=== PATIENT | female | born 1985 ===

== ENCOUNTER 2018-07-26 18:54 | Emergency (ER) | payer OTHER ==
[2018-07-26 18:56] VITALS: BMI 25.7
[2018-07-26 19:25] VITALS: RESP 18; TEMP 98.3
--- NOTE | 2018-07-26 20:11 | ED PDOC ---
Arrival/HPI - General Chief Complaint: Palpitations Time Seen by Provider: 07/26/18 19:09 Historian: Patient - History of Present Illness Narrative History of Present Illness (Text): 07/26/18 19:30 Namrata Muñoz is a 32 year old female, whose past medical history includes asthma, who presents to the Emergency department complaining of palpitations. Patient states she has been experiencing palpitations intermittently throughout the day. Patient notes she has experienced similar symptoms in the past. Patient denies any fever, chills, nausea, vomiting, diarrhea, urinary symptoms, back pain, neck pain, headache, dizziness, or any other complaints. Symptom Onset: Gradual Symptom Course: Unchanged Activities at Onset: Light Context: Home Past Medical History - Provider Review Nursing Documentation Reviewed: Yes - Tetanus Immunization Tetanus Immunization: Unknown - Pulmonary Hx Asthma: Yes - Psychiatric Hx Substance Use: No - Past Surgical History Past Surgical History: No Previous - Anesthesia Hx Anesthesia: No Hx Anesthesia Reactions: No Hx Malignant Hyperthermia: No - Suicidal Assessment Feels Threatened In Home Enviroment: No Family/Social History - Physician Review Nursing Documentation Reviewed: Yes Family/Social History: Unknown Family HX Smoking Status: Never Smoked Hx Alcohol Use: Yes Hx Substance Use: No Hx Substance Use Treatment: No Allergies/Home Meds Allergies/Adverse Reactions: Allergies No Known Allergies Allergy (Verified 09/02/14 08:59) Home Medications: Home Meds Medication Instructions Recorded Confirmed Albuterol Sulfate [Ventolin Hfa] 2 puff IH PRN PRN 09/02/14 09/02/14 Review of Systems - Physician Review All systems were reviewed & negative as marked: Yes - Review of Systems Constitutional: Normal. absent: Fevers Eyes: Normal ENT: Normal Respiratory: Normal. absent: SOB, Cough Cardiovascular: Palpitations Gastrointestinal: Normal. absent: Abdominal Pain, Diarrhea, Nausea, Vomiting Genitourinary Female: Normal. absent: Dysuria, Frequency, Hematuria Musculoskeletal: Normal. absent: Back Pain, Neck Pain Skin: Normal. absent: Rash Neurological: Normal. absent: Headache, Dizziness Endocrine: Normal Hemo/Lymphatic: Normal Psychiatric: Normal Physical Exam Vital Signs Reviewed: Yes Vital Signs Temp Pulse Resp BP Pulse Ox 07/26/18 18:56 98.3 F 80 18 117/77 100 Temperature: Afebrile Blood Pressure: Normal Pulse: Regular Respiratory Rate: Normal Appearance: Positive for: Well-Appearing, Non-Toxic, Comfortable Pain Distress: None Mental Status: Positive for: Alert and Oriented X 3 - Systems Exam Head: Present: Atraumatic, Normocephalic Pupils: Present: PERRL Extroacular Muscles: Present: EOMI Conjunctiva: Present: Normal Mouth: Present: Moist Mucous Membranes Neck: Present: Normal Range of Motion Respiratory/Chest: Present: Clear to Auscultation, Good Air Exchange. No: Respiratory Distress, Accessory Muscle Use Cardiovascular: Present: Regular Rate and Rhythm, Normal S1, S2. No: Murmurs Abdomen: No: Tenderness, Distention, Peritoneal Signs Back: Present: Normal Inspection Upper Extremity: Present: Normal Inspection. No: Cyanosis, Edema Lower Extremity: Present: Normal Inspection. No: Edema Neurological: Present: GCS=15, CN II-XII Intact, Speech Normal Skin: Present: Warm, Dry, Normal Color. No: Rashes Psychiatric: Present: Alert, Oriented x 3, Normal Insight, Normal Concentration Medical Decision Making ED Course and Treatment: 07/26/18 19:30 Impression: 32 year old female complaining of intermittent palpitations today. Plan: -- EKG -- Labs, cardiac enzymes, TSH, T3, D-dimer -- Reassess and disposition Progress Notes: Reviewed EKG, NSR at 84 bpm. Non-specific T wave changes. 07/26/18 23:45 On re-evaluation, patient feels better and is in no acute distress. I have discussed the results and plan with the patient, who expresses understanding. Patient in agreement with plan to be discharged home. Patient is stable for discharge. Patient was instructed to follow up with physician or return if symptoms worsen or new concerning symptoms arise. - EKG Interpretation Interpreted by ED Physician: Yes Type: 12 lead EKG - Scribe Statement The provider has reviewed the documentation as recorded by the Skylar Truong Provider Scribe Attestation: All medical record entries made by the Scribe were at my direction and personally dictated by me. I have reviewed the chart and agree that the record accurately reflects my personal performance of the history, physical exam, medical decision making, and the department course for this patient. I have also personally directed, reviewed, and agree with the discharge instructions and disposition. Disposition/Present on Arrival - Present on Arrival Any Indicators Present on Arrival: No History of DVT/PE: No History of Uncontrolled Diabetes: No Urinary Catheter: No History of Decub. Ulcer: No History Surgical Site Infection Following: None - Disposition Have Diagnosis and Disposition been Completed?: Yes Diagnosis: Chest pain Disposition: HOME/ ROUTINE Disposition Time: 23:45 Condition: GOOD Discharge Instructions (ExitCare): Chest Pain, Chest Pain (ED) Forms: [employer] (Niuean)
[2018-07-26 20:55] LABS: BASO # 0.02 K/mm3 (0.0-2.0); BASO % 0.4 % (0.0-3.0); EOS # 0.2 (0.0-0.7); EOS % 4.3 % (1.5-5.0); GRAN # 2.18 (1.4-6.5); HEMOGLOBIN 12.7 g/dL (12.0-16.0); LYMPH # 1.8 (1.2-3.4); LYMPH % 39.3 % (22.0-35.0); MEAN CELL VOLUME 90.5 fl (80.0-105.0); MEAN CORPUSCULAR HEMOGLOBIN 29.3 pg (25.0-35.0); MEAN CORPUSCULAR HGB CONC 32.4 g/dl (31.0-37.0); MEAN PLATELET VOLUME 8.9 fl (7.0-11.0); MONO # 0.3 (0.1-0.6); RBC 4.33 10^6/uL (3.5-6.1); RED CELL DISTRIBUTION WIDTH 12.8 % (11.5-14.5); WHITE BLOOD COUNT 4.5 10^3/uL (4.5-11.0)
[2018-07-26 21:09] LABS: ALB/GLOB RATIO 1.4 (1.1-1.8); ALBUMIN 4.6 g/dL (3.0-4.8); BLOOD UREA NITROGEN 15 mg/dL (7-21); CALCIUM 9.1 mg/dL (8.4-10.5); GFR NON-AFRICAN AMERICAN > 60
[2018-07-26 21:10] LABS: ALT/SGPT 27 U/L (7-56); AST/SGOT 26 U/L (14-36)
[2018-07-26 21:24] LABS: TROPONIN I < 0.01 ng/mL
[2018-07-26 21:46] LABS: T3 UPTAKE 32.8 % (23.0-41.0)
[2018-07-27 00:51] VITALS: BP 119/75; PULSE 71; O2SAT 100
--- NOTE | 2018-07-27 09:30 | CARD ---
APPROVED REPORT Date of service: 07/26/2018 EKG Measurement Heart [id number] <Conclusion> Normal sinus rhythm Nonspecific T wave abnormality Abnormal ECG
== END 2018-07-27 00:20 | disposition home or self-care (01) ==
LOC: ED 18:54
DX: R07.9 Chest pain, unspecified (principal); J45.909 Unspecified asthma, uncomplicated

== ENCOUNTER 2019-01-08 10:28 | Emergency (ER) | payer OTHER ==
[2019-01-08 10:29] VITALS: BMI 25.7
[2019-01-08 10:43] VITALS: RESP 18; TEMP 98.7
[2019-01-08] MEDS ORDERED: Sodium Chloride 0.9% 1,000 ML IV STA (11:03)
[2019-01-08 11:26] LABS: BASO # 0.02 K/mm3 (0.0-2.0); BASO % 0.3 % (0.0-3.0); EOS # 0.3 (0.0-0.7); HEMOGLOBIN 10.4 g/dL (12.0-16.0); LYMPH # 1.5 (1.2-3.4); LYMPH % 24.1 % (22.0-35.0); MEAN CELL VOLUME 89.2 fl (80.0-105.0); MEAN CORPUSCULAR HEMOGLOBIN 28.9 pg (25.0-35.0); MEAN CORPUSCULAR HGB CONC 32.4 g/dl (31.0-37.0); MEAN PLATELET VOLUME 8.9 fl (7.0-11.0); MONO # 0.5 (0.1-0.6); MONO % 7.2 % (1.0-6.0); RBC 3.6 10^6/uL (3.5-6.1); RED CELL DISTRIBUTION WIDTH 13.6 % (11.5-14.5); WHITE BLOOD COUNT 6.2 10^3/uL (4.5-11.0)
--- NOTE | 2019-01-08 11:33 | ED PDOC ---
Arrival/HPI - General Chief Complaint: Dizziness/Lightheaded Time Seen by Provider: 01/08/19 10:29 Historian: Patient - History of Present Illness Narrative History of Present Illness (Text): 01/08/19 11:45 A 33 year old female, whose past medical history includes asthma, presents to the emergency department complaining of palpitations, shortness of breath, and mild epigastric pain since 3AM. Patient is currently 10 weeks , . Patient reports feeling sense of impending doom, and felt like she needed air, and was wretching, denies any vomiting. Denies taking anything for the symptoms. States she has had similar symptoms in the past that resolved on its own. Mentions she has seen a psychologist for her symptoms. Patient denies any other complaints at this time. Past Medical History - Provider Review Nursing Documentation Reviewed: Yes - Tetanus Immunization Tetanus Immunization: Unknown - Cardiac Hx Cardiac Disorders: No - Pulmonary Hx Respiratory Disorders: Yes Hx Asthma: Yes - Neurological Hx Neurological Disorder: No - HEENT Hx HEENT Disorder: No - Renal Hx Renal Disorder: No - Endocrine/Metabolic Hx Endocrine Disorders: No - Hematological/Oncological Hx Blood Disorders: No - Integumentary Hx Dermatological Disorder: No - Musculoskeletal/Rheumatological Hx Musculoskeletal Disorders: No - Gastrointestinal Hx Gastrointestinal Disorders: No - Genitourinary/Gynecological Hx Genitourinary Disorders: No - Psychiatric Hx Psychophysiologic Disorder: Yes Hx Panic Disorder: Yes Hx Substance Use: No - Past Surgical History Past Surgical History: No Previous - Anesthesia Hx Anesthesia: No Hx Anesthesia Reactions: No Hx Malignant Hyperthermia: No - Suicidal Assessment Feels Threatened In Home Enviroment: No Family/Social History - Physician Review Nursing Documentation Reviewed: Yes Family/Social History: No Known Family HX Smoking Status: Never Smoked Hx Alcohol Use: Yes Hx Substance Use: No Hx Substance Use Treatment: No Allergies/Home Meds Allergies/Adverse Reactions: Allergies No Known Allergies Allergy (Verified 01/08/19 10:41) Home Medications: Home Meds Medication Instructions Recorded Confirmed Albuterol Sulfate [Ventolin Hfa] 2 puff IH PRN PRN 09/02/14 01/08/19 Review of Systems - Physician Review All systems were reviewed & negative as marked: Yes - Review of Systems Respiratory: SOB Cardiovascular: Palpitations Gastrointestinal: Abdominal Pain (epigastric). absent: Vomiting Physical Exam Vital Signs Reviewed: Yes Vital Signs Temp Pulse Resp BP Pulse Ox 01/08/19 10:42 98.7 F 101 H 18 112/69 98 Temperature: Afebrile Blood Pressure: Normal Pulse: Regular Respiratory Rate: Normal Appearance: Positive for: Well-Appearing, Non-Toxic, Comfortable Pain Distress: None Mental Status: Positive for: Alert and Oriented X 3 - Systems Exam Head: Present: Atraumatic, Normocephalic Pupils: Present: PERRL Extroacular Muscles: Present: EOMI Conjunctiva: Present: Normal Mouth: Present: Moist Mucous Membranes Neck: Present: Normal Range of Motion Respiratory/Chest: Present: Clear to Auscultation, Good Air Exchange. No: Respiratory Distress, Accessory Muscle Use Cardiovascular: Present: Regular Rate and Rhythm, Normal S1, S2. No: Murmurs Abdomen: Present: Tenderness (mild epigastric tenderness). No: Distention, Peritoneal Signs Back: Present: Normal Inspection Upper Extremity: Present: Normal Inspection. No: Cyanosis, Edema Lower Extremity: Present: Normal Inspection. No: Edema Neurological: Present: GCS=15, CN II-XII Intact, Speech Normal Skin: Present: Warm, Dry, Normal Color. No: Rashes Psychiatric: Present: Alert, Oriented x 3, Normal Insight, Normal Concentration Medical Decision Making ED Course and Treatment: 01/08/19 11:47 Impression: 33 year old female with palpitations, shortness of breath, and mild epigastric pain. Plan: -- Labs -- IV Fluids -- Urinalysis -- Nasal Cannula -- Reassess and disposition Progress Notes: 01/08/19 12:14 Labs reviewed with no leukocytsosis noted, but mild anemia(most likely secondary to ). UA shows no bacteria within the urine. Patient reeevaluated and feels much better. She reports some movement from baby and desires to go home. She is advised to adopt slow deep breathing techniques when she feels the onset of a panic attack and to follow up with her industrial hire sales assistant. Opportunity for questions given and answered. She is stable for discharge. - Lab Interpretations Lab Results: 01/08/19 11:20 01/08/19 11:20 Lab Results 01/08/19 11:20: Sodium 136, Potassium 4.3, Chloride 104, Carbon Dioxide 25, Anion Gap 12, BUN 7, Creatinine 0.4 L, Est GFR ( Amer) > 60, Est GFR (Non-Af Amer) > 60, Random Glucose 80, Calcium 9.0, Magnesium 1.8, Total Bilirubin 0.1 L, AST 33, ALT 29, Alkaline Phosphatase 36 L D, Total Protein 6.6, Albumin 3.6, Globulin 3.0, Albumin/Globulin Ratio 1.2, Lipase 244 01/08/19 11:20: WBC 6.2 D, RBC 3.60, Hgb 10.4 L D, Hct 32.1 L, MCV 89.2, MCH 28.9, MCHC 32.4, RDW 13.6, Plt Count 281, MPV 8.9, Neut % (Auto) 64.4, Lymph % (Auto) 24.1, [place] % (Auto) 7.2 H, Eos % (Auto) 4.0, Baso % (Auto) 0.3, Lymph # (Auto) 1.5, [place] # (Auto) 0.5, Eos # (Auto) 0.3, Baso # (Auto) 0.02, Absolute Neuts (auto) 4.01 01/08/19 11:19: Urine Color Yellow, Urine Appearance Clear, Urine pH 6.0, Ur Specific [place] 1.020, Urine Protein Negative, Urine Glucose (UA) Negative, Urine Ketones Negative, Urine Blood Negative, Urine Nitrate Negative, Urine Bilirubin Negative, Urine Urobilinogen 0.2, Ur Leukocyte Esterase Negative I have reviewed the lab results: Yes - EKG Interpretation EKG Interpretation (Text): EKG: Ordered, reviewed, and independently interpreted the EKG. Rate : 83 BPM Rhythm : NSR Interpretation : T-wave inversions in v1-v4, no ST-abnormalities, no QT prolongation. Comparison : No previous EKG for comparison. - Medication Orders Current Medication Orders: Sodium Chloride (Sodium Chloride 0.9%) 1,000 mls @ 999 mls/hr IV .Q1H1M STA Stop: 01/08/19 12:03 Last Admin: 01/08/19 11:20 Dose: 999 mls/hr eMAR Start Stop Document 01/08/19 11:20 OCS (Rec: 01/08/19 11:28 OCS [facility] [id number]) Intravenous Solution Start Date 01/08/19 Start Time 11:27 End Date 01/08/19 End time 12:28 Total Infusion Time 61 - Scribe Statement The provider has reviewed the documentation as recorded by the Scribe Dannie Clement Provider Scribe Attestation: All medical record entries made by the Scribe were at my direction and personally dictated by me. I have reviewed the chart and agree that the record accurately reflects my personal performance of the history, physical exam, medical decision making, and the department course for this patient. I have also personally directed, reviewed, and agree with the discharge instructions and disposition. Disposition/Present on Arrival - Present on Arrival Any Indicators Present on Arrival: No History of DVT/PE: No History of Uncontrolled Diabetes: No Urinary Catheter: No History of Decub. Ulcer: No History Surgical Site Infection Following: None - Disposition Have Diagnosis and Disposition been Completed?: Yes Diagnosis: Panic attack Disposition: HOME/ ROUTINE Disposition Time: 12:17 Patient Plan: Discharge Condition: IMPROVED Discharge Instructions (ExitCare): Anxiety, Adult (DC) Print Language: SWEDISH Additional Instructions: All medical record entries made by the Scribe were at my direction and personally dictated by me. I have reviewed the chart and agree that the record accurately reflects my personal performance of the history, physical exam, medical decision making, and the department course for this patient. I have also personally directed, reviewed, and agree with the discharge instructions and disposition. Please follow up with your industrial hire sales assistant for care If your feel worsening symptoms, feel free to return to the ER Referrals: Yelitza Gutierrez DO [Primary Care Provider] - Follow up with primary Forms: [employer] (Puerto Rican)
[2019-01-08 11:36] LABS: ALB/GLOB RATIO 1.2 (1.1-1.8); ALBUMIN 3.6 g/dL (3.0-4.8); ALT/SGPT 29 U/L (7-56); AST/SGOT 33 U/L (14-36); BLOOD UREA NITROGEN 7 mg/dL (7-21); GFR NON-AFRICAN AMERICAN > 60; LIPASE 244 U/L (23-300)
[2019-01-08 11:42] LABS: URINE BILIRUBIN NEGATIVE (NEGATIVE); URINE BLOOD NEGATIVE (NEGATIVE); URINE GLUCOSE (UA) NEGATIVE (NEGATIVE); URINE LEUKOCYTE ESTERASE NEGATIVE Leu/uL (NEGATIVE); URINE PROTEIN NEGATIVE mg/dL (<30 mg/dL); URINE UROBILINOGEN 0.2 E.U./dL (<1 E.U./dL)
[2019-01-08 11:49] LABS: URINE APPEARANCE CLEAR (CLEAR); URINE COLOR YELLOW (YELLOW)
[2019-01-08 12:22] VITALS: BP 115/69; PULSE 75; O2SAT 100
--- NOTE | 2019-01-08 14:20 | CARD ---
APPROVED REPORT Date of service: 01/08/2019 EKG Measurement Heart [id number] RI [id number] <Conclusion> Normal sinus rhythm Nonspecific T wave abnormality Abnormal ECG
== END 2019-01-08 12:28 | disposition home or self-care (01) ==
LOC: ED 10:28
DX: O26.891 Other specified pregnancy related conditions, first trimester (principal); F41.0 Panic disorder [episodic paroxysmal anxiety]; Z3A.10 10 weeks gestation of pregnancy
CPT/HCPCS: 80053; 81003; 83690; 83735; 85025; 93005; 96360; 99285; J7030